=== PATIENT | male | born 1960 | race Caucasian/White ===

== ENCOUNTER → 2017-05-17 | Outpatient (CLI) | payer OTHER | LOC: M.CT 06:47 | DX: K76.0 Fatty (change of) liver, not elsewhere classified (principal); K76.89 Other specified diseases of liver; K82.0 Obstruction of gallbladder; N28.89 Other specified disorders of kidney and ureter; Z98.890 Other specified postprocedural states ==

== ENCOUNTER → 2017-09-23 | Outpatient (CLI) | payer OTHER ==
--- NOTE | 2017-09-23 13:14 | 2DMMODE ---
[place] [address] 2 D/M-MODE ECHOCARDIOGRAM Name: ANJANA MOTA Room: [facility]#: [id number] Admission: 09/23/17 Attend Phys: Octaviano Renae Discharge: Date of : 56 Date of Service: 09/23/17 1313 Report #: [id number] THIS REPORT FOR: //name// APPROVED REPORT Study performed: 09/23/2017 08:10:29 EXAM: Comprehensive 2D, Doppler, and color-flow Echocardiogram Patient Location: Out-Patient Status: routine BSA: 2.03 HR: 75 bpm BP: 138/88 mmHg Other Information Study Quality: Good Indications Hypertension/HDD 2D Dimensions LVEF(%): 72.99 (>50%) IVSd: 10.45 (7-11mm) LVOT Diam: 20.61 (18-24mm) LVDd: 50.56 mm PWd: 10.21 (7-11mm) Ascending Ao: 26.72 (22-36mm) LVDs: 29.20 (25-40mm) Aortic Root: 27.19 mm Milton's LVEF: 72.99 % Volumes Left Atrial Volume (Systole) LA ESV Index: 14.50 mL/m2 Aortic Valve AoV Peak Lee.: 1.08 m/s AO Peak Gr.: 4.63 mmHg LVOT Max P.14 mmHg AO Mean Gr.: 2.44 mmHg LVOT Mean P.37 mmHg LVOT Max V: 0.89 m/s AO V2 VTI: 21.15 cm LVOT Mean V: 0.52 m/s FOREIGN (VTI): 2.85 cm2 LVOT V1 VTI: 18.05 cm Mitral Valve E/A Ratio: 1.07 MV Decel. Time: 215.48 [place] [address] 2 D/M-MODE ECHOCARDIOGRAM Name: ANJANA MOTA Room: [facility]#: [id number] Admission: 09/23/17 Attend Phys: Octaviano Renae Discharge: Date of : 56 Date of Service: 09/23/17 1313 Report #: [id number] MV E Max Lee.: 0.61 m/s MV PHT: 62.49 ms MVA (PHT): 3.52 cm2 TDI E/Lateral E': 6.10 E/Medial E': 8.71 Medial E' Lee.: 0.07 m/s Lateral E' Lee.: 0.10 m/s Pulmonary Valve PV Peak Lee.: 1.31 m/s PV Peak Gr.: 6.87 mmHg Left Ventricle The left ventricle is normal size. There is normal LV segmental wall motion. There is normal left ventricular wall thickness. Left ventricular systolic function is normal. The left ventricular ejection fraction is within the normal range. LVEF is 60%. The left ventricular diastolic function is normal. Right Ventricle The right ventricle is normal size. The right ventricular systolic function is normal. Atria The left atrium size is normal. The right atrium size is normal. Aortic Valve The aortic valve is normal in structure. No aortic regurgitation is present. There is no aortic valvular stenosis. Mitral Valve The mitral valve is normal in structure. There is no mitral valve regurgitation noted. No evidence of mitral valve stenosis. Tricuspid Valve The tricuspid valve is normal in structure. There is no tricuspid valve regurgitation noted. Pulmonic Valve The pulmonary valve is normal in structure. Mild pulmonic regurgitation. Great Vessels The aortic root is normal in size. IVC is normal in size and collapses with >50% [place] [address] 2 D/M-MODE ECHOCARDIOGRAM Name: ANJANA MOTA Room: [facility]#: [id number] Admission: 09/23/17 Attend Phys: Octaviano Renae Discharge: Date of : 56 Date of Service: 09/23/17 1313 Report #: [id number] Pericardium There is no pericardial effusion. <Conclusion> The left ventricle is normal size. There is normal left ventricular wall thickness. Left ventricular systolic function is normal. The left ventricular ejection fraction is within the normal range. LVEF is 60%. The right ventricle is normal size. The left atrium size is normal. The aortic valve is normal in structure. The mitral valve is normal in structure. The tricuspid valve is normal in structure. IVC is normal in size and collapses with >50% inspiration There is no pericardial effusion. There is normal LV segmental wall motion. <ELECTRONICALLY SIGNED> By: Shaq Bhatt MD, FACC 09/23/17 1313 12 131 Shaq Bhatt MD, FACC /INF
== END ==
LOC: M.CRD 07:55
DX: I10 Essential (primary) hypertension (principal)